=== PATIENT | male | born 1995 | race Hispanic/Latino ===

== ENCOUNTER 2022-05-01 08:15 | Emergency (ER) | payer SELFPAY ==
--- NOTE | ~2022-05-01 | CT_ITS ---
EXAMINATION: CT facial bones wo con DATE: 05/01/2022 09:09 INDICATION: Face injury. Fall. TECHNIQUE: Computed tomography (CT) of the facial bones and maxillofacial region was performed withou t intravenous contrast. Automated exposure control and iterative reconstruction technique were employ ed. The dose-length product was 270.66 mGy-cm. COMPARISON: None. FINDINGS: There is leftward deviation of the nasal septum. No fracture. There is mild mucosal thicken ing in the paranasal sinuses. The mastoid air cells are normal. There is a carious lesion of a left m axillary molar. IMPRESSION: 1. No fracture. Reviewed, dictated and finalized at location A. IMPRESSION: 1. No fracture.
--- NOTE | ~2022-05-01 | XR_ITS ---
EXAMINATION: XR femur RT min 2V DATE: 05/01/2022 09:22 INDICATION: Right femur pain. Fall. TECHNIQUE: 2 views of right femur on 4 radiographs were obtained. COMPARISON: None. FINDINGS: Bone alignment is normal. No fracture. Joint spaces are well maintained. There is no knee j oint effusion. IMPRESSION: 1. No fracture. Reviewed, dictated and finalized at location A. IMPRESSION: 1. No fracture.
--- NOTE | ~2022-05-01 | XR_ITS ---
EXAMINATION: XR elbow RT min 3V DATE: 05/01/2022 09:22 INDICATION: Right elbow pain. TECHNIQUE: 4 views of right elbow were obtained. COMPARISON: None. FINDINGS: Bone alignment is normal. No fracture. Joint spaces are well maintained. There is no elbow joint effusion. IMPRESSION: 1. Normal right elbow. Reviewed, dictated and finalized at location A. IMPRESSION: 1. Normal right elbow.
--- NOTE | ~2022-05-01 | XR_ITS ---
EXAMINATION: XR wrist RT min 3V INDICATION: Right wrist pain, initial encounter TECHNIQUE: Three views of the right wrist are obtained. COMPARISON: None available FINDINGS: There is an acute, traumatic, closed, comminuted intra-articular fracture of the distal rad ius. There are 10 degrees of dorsal angulation at the fracture site. There is an acute avulsion of th e ulnar styloid. No additional fracture is identified. Soft tissue swelling surrounds the fractures. IMPRESSION: 1. Comminuted intra-articular fracture of the distal radius. 2. Ulnar styloid avulsion. Reviewed, dictated and finalized at location B.
--- NOTE | ~2022-05-01 | XR_ITS ---
EXAMINATION: XR forearm RT 2V INDICATION: Right forearm pain TECHNIQUE: Two views of the right forearm are obtained. COMPARISON: None available FINDINGS: There is an acute, traumatic, closed, comminuted intra-articular fracture of the distal rad ius. There are 10 degrees of dorsal angulation at the fracture site. There is an acute avulsion of th e ulnar styloid. No additional fracture is identified. Soft tissue swelling surrounds the fractures. Bone alignment at the elbow is normal. IMPRESSION: 1. Comminuted intra-articular fracture of the distal radius. 2. Ulnar styloid avulsion. Reviewed, dictated and finalized at location B.
--- NOTE | ~2022-05-01 | CT_ITS ---
EXAMINATION: CT brain wo con INDICATION: Head injury COMPARISON: None TECHNIQUE: Standard unenhanced head CT. The dose-length product (DLP) was 605.33 mGy-cm. The mA was a djusted according to patient size. Iterative reconstruction technique was employed. FINDINGS: There is no intracranial hemorrhage, acute infarction, or abnormal mass lesion. The ventric les are normal. There is no abnormal mass effect or midline shift. The lauren-white matter differentiat ion is normal. The basal cisterns are patent. The orbits are normal. There is mild mucosal thickening of the paranasal sinuses. IMPRESSION: 1. No acute intracranial abnormality. Reviewed, dictated and finalized at location B.
[2022-05-01 08:24] VITALS: BP 97/58; PULSE 76; RESP 18; TEMP 36.6; O2SAT 99
--- NOTE | 2022-05-01 08:49 | ED.GENADULT ---
HPI - General Adult General Chief complaint: Fall Stated complaint: fell from ladder 8 feet Time Seen by Provider: 05/01/22 08:21 History of Present Illness HPI narrative: 26-year-old male presenting to the emergency department for evaluation after having a fall from an 8 foot ladder. Patient states he did strike his head but denies loss of consciousness. Patient is complaining of right arm pain involving elbow forearm and wrist. Patient also has complaint of right leg pain. Patient denies any chest pain or shortness of breath. Patient denies any abdominal pain. 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 Related Data Allergies Allergy/AdvReac Type Severity Reaction Status Date / Time No Known Allergies Allergy Verified 05/01/22 08:31 Review of Systems Review of Systems: CONSTITUTIONAL: Denies fever, chills, or sweats. EYES: Denies visual changes, redness, or discharge. ENT: Denies rhinorrhea, congestion, sore throat, or otalgia. CARDIOVASCULAR: Denies chest pain, palpitations, or edema. RESPIRATORY: Denies cough or dyspnea. GASTROINTESTINAL: Denies abdominal pain, nausea, vomiting, or diarrhea. GENITOURINARY: Denies dysuria or hematuria. SKIN: Denies rash or itching. MUSCULOSKELETAL: See HPI NEUROLOGIC: Denies headache, numbness, or weakness. Exam Narrative: APPEARANCE: Well appearing, no pain, no distress, well-nourished. HEAD: normocephalic, mild epistaxis. Mild nasal tenderness EYES: PERRLA/EOMI, conjunctivae clear. NOSE: Normal no drainage EARS:TMS clear with good light reflex. THROAT: Pharynx clear, no exudate. NECK: Supple. No adenopathy, no masses. RESPIRATORY: Airway patent, respirations nonlabored. Clear to auscultation bilaterally, no rales, rhonchi, wheezing. CARDIOVASCULAR: Regular rate and rhythm without murmurs rubs or gallops. ABDOMINAL: Soft, nontender, nondistended, normal bowel sounds MUSCULOSKELETAL: No midline cervical tenderness to palpation. Tenderness to right elbow forearm and wrist tenderness to right femur. NEURO: Alert. Cranial nerves II through XII intact. Good gait. Good coordination SKIN: Warm, dry. Normal Color Course Course Emergency Course: Patient was updated on the results of the imaging putting the right wrist fracture. Patient will be placed in a sugar-tong splint provided a prior sling. Patient was provided medications for pain control for home. Patient was strongly encouraged to have close follow-up with orthopedics. All questions and concerns were addressed. 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 Vital Signs Vital signs: Vital Signs Temperature 97.8 F 05/01/22 08:24 Pulse Rate 76 05/01/22 08:24 Respiratory Rate 18 05/01/22 08:24 Blood Pressure 97/58 L 05/01/22 08:24 Pulse Oximetry 99 05/01/22 08:24 Oxygen Delivery Room Air 05/01/22 08:24 Temperature 97.8 F 05/01/22 08:24 Pulse Rate 78 05/01/22 12:26 Respiratory Rate 18 05/01/22 12:26 Blood Pressure 109/68 05/01/22 12:26 Pulse Oximetry 98 05/01/22 12:26 Oxygen Delivery Room Air 05/01/22 08:24 Medical Decision Making Vital Signs Vital Signs: Vital Signs Temperature 97.8 F 05/01/22 08:24 Pulse Rate 76 05/01/22 08:24 Respiratory Rate 18 05/01/22 08:24 Blood Pressure 97/58 L 05/01/22 08:24 Pulse Oximetry 99 05/01/22 08:24 Oxygen Delivery Room Air 05/01/22 08:24 Temperature 97.8 F 05/01/22 08:24 Pulse Rate 78 05/01/22 12:26 Respiratory Rate 18 05/01/22 12:26 Blood Pressure 109/68 05/01/22 12:26 Pulse Oximetry 98 05/01/22 12:26 Oxygen Delivery Room Air 05/01/22 08:24 Imaging Data Radiologist's impression: Impressions Head CT 05/01/22 09:12 IMPRESSION: 1. No acute intracranial abnormality. Face CT 05/01/22 09:14 IMPRESSION: 1. No fracture. Elbow X-Ray 05/01/22 09:23 IMPRESSION: 1. Normal right elbow. Femur X-Ray 05/01/22 09:
--- NOTE | 2022-05-01 09:13 | PC.NURSE ---
pt in Xray at this time.
[2022-05-01] MEDS: HYDROcodone/acetaminophen (*CRX) 5-325 MG TABLET 1 TAB PO (09:29)
[2022-05-01 09:30] VITALS: BP 113/58; PULSE 63; RESP 17; O2SAT 100
[2022-05-01 12:26] VITALS: BP 109/68; PULSE 78; RESP 18; O2SAT 98
== END 2022-05-01 12:29 | disposition home or self-care (01) ==
PROVIDERS: Emergency Provider Emergency Medicine
DX: S09.90XA Unspecified injury of head, initial encounter (principal); S52.571A Other intraarticular fracture of lower end of right radius, initial encounter for closed fracture; S52.611A Displaced fracture of right ulna styloid process, initial encounter for closed fracture; W11.XXXA Fall on and from ladder, initial encounter
CPT/HCPCS: 29125; 70450; 70486; 73080; 73090; 73110; 73552; 99284; A4565; A9270